=== PATIENT | male | born 1975 | race African-American/Black ===

== ENCOUNTER 2019-09-03 11:30 | Inpatient (IN) | payer OTHER ==
[2019-09-03 13:12] VITALS: BMI 24.2
--- NOTE | 2019-09-03 13:48 | HP ---
CIWA Score Nausea/Vomitin Muscle Tremors: 3 Anxiety: 3 Agitation: 2 Paroxysmal Sweats: No Perspiration Orientation: 0-Oriented Tacttile Disturbances: 0-None Auditory Disturbances: 1-Very Mild Visual Disturbances: 1-Very Mild Sensitivity Headache: 2-Mild CIWA-Ar Total Score: 14 - Admission Criteria OASAS Guidelines: Admission for Medically Managed Detox: Requires at least one of the followin. CIWA greater than 12 2. Seizures within the past 24 hours 3. Delirium tremens within the past 24 hours 4. Hallucinations within the past 24 hours 5. Acute intervention needed for co occurring medical disorder 6. Acute intervention needed for co occurring psychiatric disorder 7. Severe withdrawal that cannot be handled at a lower level of care (continued vomiting, continued diarrhea, abnormal vital signs) requiring intravenous medication and/or fluids 8. Patient presents the following: CIWA greater than 12 Admission Criteria Met: Admission criteria met Admitting History and Physical - Admission History Source: Patient Limitations to Obtaining History: No Limitations - Past Medical History Psych: Yes: Addictions, Bipolar, Depression - Smoking History Smoking history: Current every day smoker Have you smoked in the past 12 months: Yes - Alcohol/Substance Use Hx Alcohol Use: Yes History of Substance Use: reports: Marijuana - Social History Usual Living Arrangement: Yes: Other (homeless) ADL: Support Services (just applied for SSI) Admission ROS [facility] - HPI Chief Complaint: I can't live like this, I'm always broke, I can't function like this - the last two years it's gotten real bad Allergies/Adverse Reactions: Allergies Allergy/AdvReac Type Severity Reaction Status Date / Time No Known Allergies Allergy Verified 09/03/19 12:51 History of Present Illness: 44 yo gentleman here for detox from alcohol - also using marijuana. Noted urine tox + bzo - patient not sure why - thinks he took a pill from someone when he was shaky but did not know what it was. No ED admissions in the last week per patient. Was in [facility] about a month ago - however he is not sure on the time line. States he drinks first thing in the morning "I have to to start my day" and drinks mostly all day. Denies seizures but does have black outs. First time here but states has been in detox other places. 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 - Ebola screening Have you traveled outside of the country in the last 21 days: No (N) Have you had contact with anyone from an Ebola affected area: No Do you have a fever: No - Review of Systems Constitutional: Loss of Appetite, Malaise, Changes in sleep, Weakness EENT: reports: Nose Congestion Respiratory: reports: No Symptoms reported Cardiac: reports: No Symptoms Reported GI: reports: Nausea, Poor Appetite, Vomiting, Indigestion, Abdominal cramping : reports: Frequency Musculoskeletal: reports: Muscle Pain, Neck Pain Integumentary: reports: Dryness Neuro: reports: Headache, Tremors Endocrine: reports: No Symptoms Reported Hematology: reports: No Symptoms Reported Psychiatric: reports: Judgement Intact, Mood/Affect Appropiate, Orientated x3, Anxious Other Systems: Reviewed and Negative Patient History - Patient Medical History Hx Anemia: No Hx Asthma: No Hx Chronic Obstructive Pulmonary Disease (COPD): No Hx Cancer: No Hx Cardiac Disorders: No Hx Congestive Heart Failure: No Hx Hypertension: Yes (non adherence to meds) Hx Hypercholesterolemia: No Hx Pacemaker: No HX Cerebrovascular Accident: No Hx Seizures: No Hx Diabetes: No Hx Gastrointestinal Disorders: No Hx Liver Disease: No Hx Genitourinary Disorders: No Hx Sexually Transmitted Disorders: No Hx Renal Disease (ESRD): No Hx Thyroid Disease: No Hx Human Immunodeficiency Virus (HIV): No Hx Hepatitis C: No Hx Depression: Yes (hospitalized a month ago - [facility]) Hx Suicide Attempt: Yes (in 2004 - by slitting wrists) Hx Bipolar Disorder: No Hx Schizophrenia: Yes (not sure - used to hear voices) - Patient Surgical History Past Surgical History: Yes Hx Orthopedic Surgery: Yes (broken jaw 2004; left broken elbow 2011) - PPD History Previous Implant?: Yes Documented Results: Negative w/o proof Implanted On Prior R Admission?: No PPD to be Administered?: Yes - Reproductive History Patient is a Female of Child Bearing Age (11 -55 yrs old): No - Smoking Cessation Smoking history: Current every day smoker Have you smoked in the past 12 months: Yes Aproximately how many cigarettes per day: 40 Hx Chewing Tobacco Use: No Initiated information on smoking cessation: Yes 'Breaking Loose' booklet given: 09/03/19 (give on floor) - Substance & Tx. History Hx Alcohol Use: Yes Hx Substance Use: Yes Substance Use Type: Alcohol, Marijuana Hx Substance Use Treatment: Yes (detox, rehab) - Substances abused Alcohol Substance route: Oral Frequency: Daily Amount used: 3 botles of 40 ounces of old vietnamese, Age of first use: 15 Date of last use: 09/03/19 Marijuana/Hashish Substance route: Smoking Frequency: Daily Amount used: 8-9 joints daily Age of first use: 19 Date of last use: 09/02/19 Admission Physical Exam [facility] - Vital Signs Vital Signs: Vital Signs - 24 hr 09/03/19 12:45 Temperature 97.3 F L Pulse Rate 91 H Respiratory 20 Rate Blood Pressure 159/101 H - Physical General Appearance: Yes: Nourished, Appropriately Dressed, Mild Distress, Tremorous, Anxious HEENTM: Yes: EOMI, Hearing grossly Normal, Normal ENT Inspection, Normocephalic Respiratory: Yes: Normal Breath Sounds, No Respiratory Distress Neck: Yes: No masses,lesions,Nodules Breast: Yes: Breast Exam Deferred Cardiology: Yes: Regular Rhythm, Regular Rate Abdominal: Yes: Soft Genitourinary: Yes: Frequency Back: Yes: Normal Inspection Musculoskeletal: Yes: full range of Motion, Gait Steady Extremities: Yes: Normal Inspection, Non-Tender, Tremors Neurological: Yes: Fully Oriented, Alert, Normal Mood/Affect, Normal Response Integumentary: Yes: Normal Color, Dry, Warm Lymphatic: Yes: Within Normal Limits - Diagnostic (1) Alcohol dependence with withdrawal, uncomplicated Current Visit: Yes Status: Chronic (2) Cannabis dependence Current Visit: Yes Status: Chronic (3) Nicotine dependence Current Visit: Yes Status: Chronic Qualifiers: Nicotine product type: cigarettes Substance use status: uncomplicated Qualified Code(s): F17.210 - Nicotine dependence, cigarettes, uncomplicated (4) HTN (hypertension) Current Visit: Yes Status: Acute Qualifiers: Hypertension type: essential hypertension Qualified Code(s): I10 - Essential (primary) hypertension Cleared for Admission [facility] - Detox or Rehab [facility] Level of Care: Medically Managed Detox Regimen/Protocol: Librium Breathalyzer - Breathalyzer Breathalyzer: 0.029 Urine Drug Screen - Test Device Lot number: [id number] Expiration date: 03/16/21 - Control Is test valid?: Yes - Results Drug screen NEGATIVE: No Urine drug screen results: THC-Marijuana, BZO-Benzodiazepines Inpatient Rehab Admission - Rehab Decision to Admit Inpatient rehab admission?: No
[2019-09-03] MEDS ORDERED: hydrOXYzine PAMOATE 25 MG CAPSULE (FP) PO PRN (14:00)
[2019-09-03] MEDS ORDERED: BISMUTH SUBSALICYLATE 524 MG/30 ML UD PO PRN (14:00)
[2019-09-03] MEDS ORDERED: MAGNESIUM HYDROX 2400MG/30ML ORAL SUSPENSION 30 ML CUP PO PRN (14:00)
[2019-09-03] MEDS ORDERED: chlordiazePOXIDE HCL 25 MG CAPSULE PO ONE (14:00)
[2019-09-03] MEDS ORDERED: ACETAMINOPHEN 325 MG TABLET (FP) PO PRN ×2 (14:00)
[2019-09-03] MEDS ORDERED: MELATONIN 5 MG TABLETS PO PRN (14:00)
[2019-09-03] MEDS ORDERED: MAGNESIUM CITRATE 300 ML BOTTLE PO PRN (14:00)
[2019-09-03] MEDS ORDERED: IBUPROFEN 400 MG TABLET (FP) PO PRN (14:00)
[2019-09-03] MEDS ORDERED: MENTHOL/PHENOL 1 EACH UD MM PRN (14:00)
[2019-09-03] MEDS ORDERED: MAG HYDROX/AL HYDROX/SIMETH 30 ML UNIT-DOSE CUP PO PRN (14:00)
[2019-09-03] MEDS ORDERED: METHOCARBAMOL 500 MG TABLET PO PRN (14:00)
[2019-09-03] MEDS ORDERED: chlordiazePOXIDE HCL 25 MG CAPSULE PO PRN (14:00)
[2019-09-03] MEDS: chlordiazePOXIDE HCL 25 MG CAPSULE PO SCH ×2 (16:03→22:36)
[2019-09-03] MEDS: THIAMINE HCL 100 MG TABLET (FP) PO SCH (22:36)
[2019-09-04] MEDS: chlordiazePOXIDE HCL 25 MG CAPSULE PO SCH ×4 (05:20→22:26)
[2019-09-04] MEDS: PRENATAL VITAMINS W/ FOLIC ACID TABLET (FP) PO SCH (10:30)
[2019-09-04 10:43] LABS: HEMATOCRIT 37.8 % (35.4-49); HEMOGLOBIN 12.6 GM/dL (11.7-16.9); MCHC 33.5 g/dl (32.0-35.9); MEAN CELL VOLUME 86.6 fl (80-96); MEAN PLT VOLUME 8.5 fl (7.5-11.1); PLATELET COUNT 249 K/MM3 (134-434); RBC 4.36 M/mm3 (4.00-5.60); WHITE BLOOD COUNT 4.4 K/mm3 (4.0-10.0)
[2019-09-04 10:50] LABS: ALBUMIN 3.5 g/dl (3.4-5.0); BILIRUBIN,TOTAL 1.2 mg/dL (0.2-1); BLOOD UREA NITROGEN 12.6 mg/dL (7-18); CALCIUM 8.9 mg/dL (8.5-10.1); POTASSIUM 3.7 mmol/L (3.5-5.1); TOT PROT 6.9 g/dl (6.4-8.2)
[2019-09-04 10:50] LABS: URINE APPEARANCE CLEAR; URINE BILIRUBIN NEGATIVE (NEGATIVE); URINE COLOR YELLOW; URINE GLUCOSE (UA) NEGATIVE (NEGATIVE); URINE KETONE NEGATIVE (NEGATIVE); URINE LEUK ESTERASE NEGATIVE (NEGATIVE); URINE NITRITE NEGATIVE (NEGATIVE); URINE PROTEIN NEGATIVE (NEGATIVE); URINE UROBILINOGEN 0.2 mg/dL (0.2-1.0)
--- NOTE | 2019-09-04 11:03 | EKG ---
Test Reason : Blood Pressure : / mmHG Vent. Rate : 069 BPM Atrial Rate : 069 BPM P-R Int : 124 ms QRS Dur : 086 ms QT Int : 404 ms P-R-T Axes : 046 066 047 degrees QTc Int : 432 ms NORMAL SINUS RHYTHM MINIMAL VOLTAGE CRITERIA FOR LVH, MAY BE NORMAL VARIANT BORDERLINE ECG NO PREVIOUS ECGS AVAILABLE Confirmed by KISHAN CRAMER MD ([id number]) on 09/04/2019 11:03:11 AM Referred By: Confirmed By:KISHAN CRAMER MD
[2019-09-04] MEDS ORDERED: PNEUMOCOCCAL 23 VACCINE 0.5 ML VIAL IM ONE (12:00)
[2019-09-04] MEDS ORDERED: FLU VACCINE QUAD 60 MCG/0.5 ML (MDV 19-20) IM ONE (12:00)
[2019-09-04] MEDS ORDERED: PNEUMOC 13-VAL CONJ-DIP CRM/PF 0.5 ML DISP.SYRIN IM ONE (12:00)
[2019-09-04] MEDS: CHLORTHALIDONE 25 MG TABLET PO SCH (12:49)
--- NOTE | 2019-09-04 13:39 | PN ---
S CIWA - CIWA Score Nausea/Vomitin-No Nausea/No Vomiting Muscle Tremors: 3 Anxiety: 2 Agitation: 3 Paroxysmal Sweats: 2 Orientation: 0-Oriented Tacttile Disturbances: 0-None Auditory Disturbances: 0-None Visual Disturbances: 0-None Headache: 0-None Present CIWA-Ar Total Score: 10 [facility] Progress Note (SOAP) Subjective: sweats chills irritable feet pain Objective: 09/04/19 13:38 Vital Signs Temperature 97.0 F L 09/04/19 09:33 Pulse Rate 68 09/04/19 09:33 Respiratory Rate 18 09/04/19 09:33 Blood Pressure 156/111 H 09/04/19 09:33 O2 Sat by Pulse Oximetry (%) Laboratory Tests 09/04/19 09/04/19 09/04/19 07:20 07:20 07:20 WBC 4.4 RBC 4.36 Hgb 12.6 Hct 37.8 MCV 86.6 MCH 29.0 MCHC 33.5 RDW 14.0 Plt Count 249 MPV 8.5 Sodium 140 Potassium 3.7 Chloride 108 H Carbon Dioxide 28 Anion Gap 4 L BUN 12.6 Creatinine 1.0 Est GFR (CKD-EPI)AfAm 107.12 Est GFR (CKD-EPI)NonAf 92.42 Random Glucose 89 Calcium 8.9 Total Bilirubin 1.2 H AST 27 ALT 27 Alkaline Phosphatase 82 Total Protein 6.9 Albumin 3.5 Urine Color Urine Appearance Urine pH Ur Specific [place] Urine Protein Urine Glucose (UA) Urine Ketones Urine Blood Urine Nitrite Urine Bilirubin Urine Urobilinogen Ur Leukocyte Esterase RPR Titer Nonreactive 09/04/19 07:30 WBC RBC Hgb Hct MCV MCH MCHC RDW Plt Count MPV Sodium Potassium Chloride Carbon Dioxide Anion Gap BUN Creatinine Est GFR (CKD-EPI)AfAm Est GFR (CKD-EPI)NonAf Random Glucose Calcium Total Bilirubin AST ALT Alkaline Phosphatase Total Protein Albumin Urine Color Yellow Urine Appearance Clear Urine pH 7.0 Ur Specific [place] 1.009 L Urine Protein Negative Urine Glucose (UA) Negative Urine Ketones Negative Urine Blood Negative Urine Nitrite Negative Urine Bilirubin Negative Urine Urobilinogen 0.2 Ur Leukocyte Esterase Negative RPR Titer elevated BP noted; pt HTN medication was ordered aaox3 ambulating no acute distress Assessment: 09/04/19 13:39 withdrawals Plan: continue detox monitor BP
[2019-09-04] MEDS: METHYL SALICYLATE/MENTHOL OINT 30 GM TUBE TP SCH ×2 (14:50→22:26)
--- NOTE | 2019-09-04 14:53 | CONSULT ---
[facility] Psychiatric Consult - Data Date of interview: 09/04/19 Admission source: [facility] Identifying data: Formulation Technician approached patient for psychiatric consultation. Patient stated, " I don't want to speak to you." Psychiatric consultaton refused. Please order another psychiatric consultation if requested by patient.
[2019-09-04] MEDS ORDERED: cloNIDine HCL 0.1 MG TABLET PO ONE (15:07)
--- NOTE | 2019-09-04 15:16 | PN ---
[facility] Progress Note Note: BP 155/104 HR 75, pt appears assymptomatic however, clonidine 0.1mg x one dose ordered. will continue to monitor.
[2019-09-04] MEDS: THIAMINE HCL 100 MG TABLET (FP) PO SCH (22:26)
[2019-09-05] MEDS: chlordiazePOXIDE HCL 25 MG CAPSULE PO SCH ×4 (05:52→22:01)
--- NOTE | 2019-09-05 10:17 | PN ---
[facility] CIWA - CIWA Score Nausea/Vomitin-No Nausea/No Vomiting Muscle Tremors: 2 Anxiety: 3 Agitation: 1-Slight > Activity Paroxysmal Sweats: 2 Orientation: 0-Oriented Tacttile Disturbances: 2-Mild Itch/Numbness/Burn Auditory Disturbances: 0-None Visual Disturbances: 0-None Headache: 1-Very Mild CIWA-Ar Total Score: 11 [facility] Progress Note (SOAP) Subjective: c/o of interrupted sleep, chills, sweats Patient reports non-adherence with BP meds for "weeks " prior to detox admission Denies CP, headache or dizziness Objective: 09/05/19 10:16 Vital Signs Temperature 98.8 F 09/05/19 09:52 Pulse Rate 120 H 09/05/19 09:52 Respiratory Rate 19 09/05/19 09:52 Blood Pressure 149/98 09/05/19 09:52 O2 Sat by Pulse Oximetry (%) Laboratory Last Values WBC 4.4 K/mm3 (4.0-10.0) 09/04/19 07:20 RBC 4.36 M/mm3 (4.00-5.60) 09/04/19 07:20 Hgb 12.6 GM/dL (11.7-16.9) 09/04/19 07:20 Hct 37.8 % (35.4-49) 09/04/19 07:20 MCV 86.6 fl (80-96) 09/04/19 07:20 MCH 29.0 pg (25.7-33.7) 09/04/19 07:20 MCHC 33.5 g/dl (32.0-35.9) 09/04/19 07:20 RDW 14.0 % (11.9-15.9) 09/04/19 07:20 Plt Count 249 K/MM3 (134-434) 09/04/19 07:20 MPV 8.5 fl (7.5-11.1) 09/04/19 07:20 Sodium 140 mmol/L (136-145) 09/04/19 07:20 Potassium 3.7 mmol/L (3.5-5.1) 09/04/19 07:20 Chloride 108 mmol/L (98-107) H 09/04/19 07:20 Carbon Dioxide 28 mmol/L (21-32) 09/04/19 07:20 Anion Gap 4 MMOL/L (8-16) L 09/04/19 07:20 BUN 12.6 mg/dL (7-18) 09/04/19 07:20 Creatinine 1.0 mg/dL (0.55-1.3) 09/04/19 07:20 Est GFR (CKD-EPI)AfAm 107.12 09/04/19 07:20 Est GFR (CKD-EPI)NonAf 92.42 09/04/19 07:20 Random Glucose 89 mg/dL (74-106) 09/04/19 07:20 Calcium 8.9 mg/dL (8.5-10.1) 09/04/19 07:20 Total Bilirubin 1.2 mg/dL (0.2-1) H 09/04/19 07:20 AST 27 U/L (15-37) 09/04/19 07:20 ALT 27 U/L (13-61) 09/04/19 07:20 Alkaline Phosphatase 82 U/L (45-117) 09/04/19 07:20 Total Protein 6.9 g/dl (6.4-8.2) 09/04/19 07:20 Albumin 3.5 g/dl (3.4-5.0) 09/04/19 07:20 Urine Color Yellow 09/04/19 07:30 Urine Appearance Clear 09/04/19 07:30 Urine pH 7.0 (5.0-8.0) 09/04/19 07:30 Ur Specific [place] 1.009 (1.010-1.035) L 09/04/19 07:30 Urine Protein Negative (NEGATIVE) 09/04/19 07:30 Urine Glucose (UA) Negative (NEGATIVE) 09/04/19 07:30 Urine Ketones Negative (NEGATIVE) 09/04/19 07:30 Urine Blood Negative (NEGATIVE) 09/04/19 07:30 Urine Nitrite Negative (NEGATIVE) 09/04/19 07:30 Urine Bilirubin Negative (NEGATIVE) 09/04/19 07:30 Urine Urobilinogen 0.2 mg/dL (0.2-1.0) 09/04/19 07:30 Ur Leukocyte Esterase Negative (NEGATIVE) 09/04/19 07:30 RPR Titer Nonreactive (NONREACTIVE) 09/04/19 07:20 Assessment: 09/05/19 13:48 Aox3 no acute distress EENT WNL No adventitious breath sounds Full ROM no gait disturbance withdrawal sx HTN Plan: increase fluids repeat v/s after AM BP meds given continue detox continue to monitor
[2019-09-05] MEDS: PRENATAL VITAMINS W/ FOLIC ACID TABLET (FP) PO SCH (10:23)
[2019-09-05] MEDS: CHLORTHALIDONE 25 MG TABLET PO SCH (10:24)
[2019-09-05] MEDS: METHYL SALICYLATE/MENTHOL OINT 30 GM TUBE TP SCH ×2 (10:37→23:50)
[2019-09-05] MEDS ORDERED: cloNIDine HCL 0.1 MG TABLET PO ONE (14:14)
[2019-09-05] MEDS ORDERED: LISINOPRIL 5 MG TABLET (FP) PO ONE (17:56)
--- NOTE | 2019-09-05 17:57 | PN ---
S Progress Note Note: called by nurse for elevated BP Vital Signs - 24 hr 09/04/19 09/04/19 09/05/19 21:19 21:26 00:30 Temperature 98.2 F 98.2 F Pulse Rate 87 Respiratory 18 18 Rate Blood Pressure 124/65 09/05/19 09/05/19 09/05/19 03:30 07:09 07:16 Temperature 98.4 F Pulse Rate 98 H 80 Respiratory 18 18 18 Rate Blood Pressure 158/119 H 142/98 09/05/19 09/05/19 09/05/19 09:52 14:06 17:31 Temperature 98.8 F 98.1 F 98.2 F Pulse Rate 120 H 73 84 Respiratory 19 18 18 Rate Blood Pressure 149/98 145/86 142/108 H on Clonidine prn since 09/05/2019 @ 22:00 P : lisinopril 2.5 mg once given .
[2019-09-05] MEDS: THIAMINE HCL 100 MG TABLET (FP) PO SCH (22:01)
[2019-09-05] MEDS: cloNIDine HCL 0.1 MG TABLET PO SCH (22:01)
[2019-09-06] MEDS ORDERED: chlordiazePOXIDE HCL 10 MG CAPSULE PO PRN
[2019-09-06] MEDS: chlordiazePOXIDE HCL 10 MG CAPSULE PO SCH ×4 (05:20→22:19)
--- NOTE | 2019-09-06 09:48 | PN ---
S CIWA - CIWA Score Nausea/Vomitin-No Nausea/No Vomiting Muscle Tremors: 2 Anxiety: 2 Agitation: 2 Paroxysmal Sweats: 2 Orientation: 0-Oriented Tacttile Disturbances: 0-None Auditory Disturbances: 0-None Visual Disturbances: 0-None Headache: 0-None Present CIWA-Ar Total Score: 8 [facility] Progress Note (SOAP) Subjective: sweats restless agitation Objective: 09/06/19 09:47 Vital Signs Temperature 96.8 F L 09/06/19 09:27 Pulse Rate 86 09/06/19 09:27 Respiratory Rate 18 09/06/19 09:27 Blood Pressure 141/105 H 09/06/19 09:27 O2 Sat by Pulse Oximetry (%) aaox3 ambulating no acute distress elevated BP noted; continue with current BP medication ordered continue to monitor BP Assessment: 09/06/19 09:47 withdrawals Plan: continue detox lisinopril 10mg daily along with other BP meds ordered
[2019-09-06] MEDS: cloNIDine HCL 0.1 MG TABLET PO SCH ×2 (10:15→22:19)
[2019-09-06] MEDS: PRENATAL VITAMINS W/ FOLIC ACID TABLET (FP) PO SCH (10:15)
[2019-09-06] MEDS: CHLORTHALIDONE 25 MG TABLET PO SCH (10:15)
[2019-09-06] MEDS: LISINOPRIL 10 MG TABLET (FP) PO SCH (10:15)
[2019-09-06] MEDS: METHYL SALICYLATE/MENTHOL OINT 30 GM TUBE TP SCH ×2 (10:18→22:22)
[2019-09-06] MEDS: THIAMINE HCL 100 MG TABLET (FP) PO SCH (22:19)
[2019-09-07] MEDS: chlordiazePOXIDE HCL 10 MG CAPSULE PO SCH ×2 (05:37→16:52)
[2019-09-07] MEDS: LISINOPRIL 10 MG TABLET (FP) PO SCH (09:49)
[2019-09-07] MEDS: CHLORTHALIDONE 25 MG TABLET PO SCH (09:49)
[2019-09-07] MEDS: cloNIDine HCL 0.1 MG TABLET PO SCH ×2 (09:49→22:12)
[2019-09-07] MEDS: PRENATAL VITAMINS W/ FOLIC ACID TABLET (FP) PO SCH (09:49)
[2019-09-07] MEDS: METHYL SALICYLATE/MENTHOL OINT 30 GM TUBE TP SCH ×2 (09:59→22:13)
--- NOTE | 2019-09-07 12:44 | PN ---
S CIWA - CIWA Score Nausea/Vomitin-No Nausea/No Vomiting Muscle Tremors: 2 Anxiety: 1-Mildly Anxious Agitation: 1-Slight > Activity Paroxysmal Sweats: 1-Minimal Palms Moist Orientation: 0-Oriented Tacttile Disturbances: 0-None Auditory Disturbances: 0-None Visual Disturbances: 0-None Headache: 0-None Present CIWA-Ar Total Score: 5 [facility] Progress Note (SOAP) Subjective: feeling better i want a vegetarian diet. I want to maintain my blood pressure low Objective: 09/07/19 12:43 Vital Signs Temperature 96.6 F L 09/07/19 09:26 Pulse Rate 80 09/07/19 09:26 Respiratory Rate 18 09/07/19 09:26 Blood Pressure 124/78 09/07/19 09:26 O2 Sat by Pulse Oximetry (%) aaox3 ambulating no acute distress Assessment: 09/07/19 12:43 mild withdrawals Plan: continue detox vegetarian diet ordered d/c in am
[2019-09-07] MEDS: THIAMINE HCL 100 MG TABLET (FP) PO SCH (22:12)
[2019-09-08] MEDS ORDERED: chlordiazePOXIDE HCL 10 MG CAPSULE PO ONE (05:00)
[2019-09-08] MEDS: PRENATAL VITAMINS W/ FOLIC ACID TABLET (FP) PO SCH (10:35)
[2019-09-08] MEDS: CHLORTHALIDONE 25 MG TABLET PO SCH (10:35)
[2019-09-08] MEDS: cloNIDine HCL 0.1 MG TABLET PO SCH ×2 (10:35→22:05)
[2019-09-08] MEDS: METHYL SALICYLATE/MENTHOL OINT 30 GM TUBE TP SCH ×2 (10:35→22:05)
[2019-09-08] MEDS: LISINOPRIL 10 MG TABLET (FP) PO SCH (10:36)
--- NOTE | 2019-09-08 11:34 | PN ---
S CIWA - CIWA Score Nausea/Vomitin-No Nausea/No Vomiting Muscle Tremors: 2 Anxiety: 1-Mildly Anxious Agitation: 1-Slight > Activity Paroxysmal Sweats: No Perspiration Orientation: 0-Oriented Tacttile Disturbances: 0-None Auditory Disturbances: 0-None Visual Disturbances: 0-None Headache: 0-None Present CIWA-Ar Total Score: 4 [facility] Progress Note (SOAP) Subjective: i need to see psych now anxiety Objective: 09/08/19 11:36 Vital Signs Temperature 97.5 F L 09/08/19 11:13 Pulse Rate 77 09/08/19 11:13 Respiratory Rate 19 09/08/19 11:13 Blood Pressure 140/78 09/08/19 11:13 O2 Sat by Pulse Oximetry (%) aaox3 ambulating no acute distress Assessment: 09/08/19 11:37 mild withdrawal Plan: d/c in am psych ordered for consultation
[2019-09-08] MEDS: THIAMINE HCL 100 MG TABLET (FP) PO SCH (22:04)
--- NOTE | 2019-09-09 09:26 | DS ---
[facility] Detox Discharge Summary Admission Date: 09/03/19 Discharge Date: 09/09/19 - History Present History: Alcohol Dependence, Cannabis Dependence - Physical Exam Results Vital Signs: Vital Signs Temperature 97.9 F 09/09/19 06:51 Pulse Rate 70 09/09/19 06:51 Respiratory Rate 18 09/09/19 06:51 Blood Pressure 122/50 L 09/09/19 06:51 O2 Sat by Pulse Oximetry (%) Pertinent Admission Physical Exam Findings: Vital Signs Temperature 97.9 F 09/09/19 06:51 Pulse Rate 70 09/09/19 06:51 Respiratory Rate 09/09/19 06:51 Blood Pressure 122/50 L 09/09/19 06:51 O2 Sat by Pulse Oximetry (%) - Treatment Hospital Course: Detox Protocol Followed, Detoxed Safely, Responded well, Discharged Condition Good, Rehab Referral Accepted Patient has Accepted a Rehab Referral to: pt referred to [facility] - Medication Discharge Medications: Ambulatory Orders Chlorthalidone [Hygroton -] 25 mg PO DAILY 09/03/19 - Diagnosis (1) HTN (hypertension) Current Visit: Yes Status: Chronic Qualifiers: Hypertension type: essential hypertension Qualified Code(s): I10 - Essential (primary) hypertension (2) Alcohol dependence with withdrawal, uncomplicated Current Visit: Yes Status: Chronic (3) Cannabis dependence Current Visit: Yes Status: Chronic (4) Nicotine dependence Current Visit: Yes Status: Chronic Qualifiers: Nicotine product type: cigarettes Substance use status: uncomplicated Qualified Code(s): F17.210 - Nicotine dependence, cigarettes, uncomplicated - AMA Did Patient Leave Against Medical Advice: No
[2019-09-09 09:54] VITALS: BP 116/84; PULSE 69; TEMP 97
[2019-09-09] MEDS: cloNIDine HCL 0.1 MG TABLET PO SCH (11:04)
[2019-09-09] MEDS: METHYL SALICYLATE/MENTHOL OINT 30 GM TUBE TP SCH (11:04)
[2019-09-09] MEDS: PRENATAL VITAMINS W/ FOLIC ACID TABLET (FP) PO SCH (11:05)
[2019-09-09] MEDS: CHLORTHALIDONE 25 MG TABLET PO SCH (11:05)
[2019-09-09] MEDS: LISINOPRIL 10 MG TABLET (FP) PO SCH (11:05)
== END 2019-09-09 10:30 | disposition home or self-care (01) | DRG 775 ==
LOC: YASAS 11:30 → Y6N 14:35
PROVIDERS: ADMIT Allergy & Immunology; ATTEND Allergy & Immunology
PROC: HZ2ZZZZ Detoxification Services for Substance Abuse Treatment (ICD-10-PCS; principal; 2019-09-03)
DX: F10.230 Alcohol dependence with withdrawal, uncomplicated (principal); F12.20 Cannabis dependence, uncomplicated; F17.210 Nicotine dependence, cigarettes, uncomplicated; F31.9 Bipolar disorder, unspecified; I10 Essential (primary) hypertension; Z91.5 Personal history of self-harm; Z59.0 Homelessness
CPT/HCPCS: 36415; 80053; 81003; 85027; 86593; 90732; 93005; 93010; G0008; G0009; J0735; Q2036